=== PATIENT | female | born 1955 | race Two or more races ===

== ENCOUNTER 2018-06-14 09:07 | Outpatient (CLI) | payer OTHER ==
[~2018-06-14 09:07] MED LIST: KETO10TA2 PO; ORPH100T PO
== END 2018-06-14 09:09 | disposition home or self-care (01) ==
LOC: SONOGRAMA 09:07
DX: E04.2 Nontoxic multinodular goiter (principal)

== ENCOUNTER 2018-07-27 07:26 | Day surgery (SDC) | payer OTHER ==
[~2018-07-27 07:26] MED LIST changes: +BONIVA PO; +BUPROPION PO; +CATAFLAN PO; +FOLIC PO; +GABAPENTIN PO; +HAIR VITAMIN1 EACH PO; +METHOT PO; +OSTERA TABLET1 EACH PO; +PRED PO; +TRAMADOL PO; +TURMERIC500 M1 PO
== END 2018-07-27 13:10 | disposition home or self-care (01) ==
LOC: CIR.AMB 07:26
DX: M51.16 Intervertebral disc disorders with radiculopathy, lumbar region (principal)

== ENCOUNTER 2018-11-15 08:31 | Outpatient (CLI) | payer OTHER | END 2018-11-15 08:37 | disposition home or self-care (01) | LOC: SONOGRAMA 08:31 | DX: E04.1 Nontoxic single thyroid nodule (principal) ==

== ENCOUNTER 2022-10-06 08:20 | Outpatient (CLI) | payer OTHER ==
[~2022-10-06 08:20] MED LIST changes: +DICLOFENAC SODI75 MG PO; +NEURONTIN300 MG PO
== END 2022-10-06 08:24 | disposition home or self-care (01) ==
LOC: RX STUDY 08:20
PROVIDERS: ATTEND Internal Medicine Gastroenterology
DX: R13.0 Aphagia (principal)